=== PATIENT | male | born 1960 | race Caucasian/White ===

== ENCOUNTER 2025-10-18 15:32 | Outpatient (CLI) | payer MEDICARE, SELFPAY ==
[2025-10-18 16:03] LABS: Hematocrit 47.9 % (37-53); Hemoglobin 16.30 g/dL (11.27-16.99); Mean Corpuscular HGB Conc 34.0 g/dL (30-55); Mean Corpuscular Hemoglobin 30.6 pg (27-33); Mean Corpuscular Volume 89.9 fl (82-101); Nucleated Red Blood Cells % 0 %; Platelet Count 231 10^3/cmm (157-399); Red Blood Count 5.33 10^6/uL (3.85-5.65); White Blood Count 7.77 10^3/uL (3.29-11.43)
== END 2025-10-18 15:33 | disposition home or self-care (01) ==
LOC: LAB 15:35
PROVIDERS: PCP Nurse Practitioner Family; Visit Provider Nurse Practitioner Family
DX: D58.2 Other hemoglobinopathies (principal)
CPT/HCPCS: 36415; 85025

== ENCOUNTER 2025-10-27 14:17 | Outpatient (CLI) | payer MEDICARE, SELFPAY ==
--- NOTE | 2025-10-27 14:33 | USCV_ITS ---
Gonzalez Lea Age: 65 Gender: M : 1960 Exam Date: 10/27/2025 15:02 Ordering Phys: Seda Gonsalez APN Technologist: Adrian Toledo Exam Location: [facility] – [place] Indication: hypertension/ intermittent chest pain BP: 152 / 88 HR: 72 Rhythm: Sinus Technical Quality: Adequate MEASUREMENTS (Male / Female) Normal Values 2D ECHO LV Diastolic Diameter PLAX 5.2 cm 4.2 - 5.9 / 3.9 - 5.3 cm IVS Diastolic Thickness 1.1 cm 0.6 - 1.0 / 0.6 - 0.9 cm IVS Systolic Thickness 1.4 cm LVPW Diastolic Thickness 1.0 cm 0.6 - 1.0 / 0.6 - 0.9 cm LVPW Systolic Thickness 1.9 cm LVOT Diameter 2.1 cm LV Ejection Fraction 2D Teich 63.4 % LV Ejection Fraction MOD 4C 55.4 % LV Ejection Fraction MOD 2C 54.8 % LV Ejection Fraction 2C AL 54.8 % LA Diameter 4.5 cm RA Systolic Volume 4C AL 46.1 ml RA Systolic Volume 4C MOD 43.5 ml LA Sys Volume AL 53.5 cm cubed LA Sys Volume Index AL 22.4 cm cubed/m squared Aorta at Sinotubular Diameter 2.9 cm IVC Diameter 1.4 cm M-MODE LA Ao Ratio MM 1.0 AV Cusp Separation MM 2.1 cm DOPPLER AV Peak Velocity 130.0 cm/s LVOT Peak Velocity 72.0 cm/s AV Area Cont Eq vti 2.1 cm squared AV Area Cont Eq pk 2.0 cm squared MV Peak Velocity 63.0 cm/s MV Area PHT 4.3 cm squared Mitral E to A Ratio 0.8 TR Peak Velocity 291.0 cm/s TR Peak Gradient 33.9 mmHg TR Mean Velocity 231.0 cm/s TR Mean Gradient 22.6 mmHg TR Velocity Time Integral 60.2 cm PV Peak Velocity 104.7 cm/s RV Ejection Time 0.3 s FINDINGS Left Ventricle Normal left ventricular size, systolic function and wall thickness with no regional wall motion abnormality. Left ventricular ejection fraction is 55%. Normal left ventricular diastolic function. Right Ventricle Normal right ventricular size and systolic function. Right Atrium Normal right atrial size. Left Atrium Normal left atrial size. IA Septum Normal appearance of the interatrial septum. Mitral Valve Normal mitral valve structure. No mitral valve stenosis or regurgitation. Aortic Valve Normal aortic valve structure. No aortic valve stenosis. Trace aortic valve regurgitation Tricuspid Valve Normal tricuspid valve structure. Trace tricuspid valve regurgitation. Normal pulmonary pressure. Pulmonic Valve Normal pulmonic valve structure. No pulmonic valve stenosis or regurgitation. Pericardium No pericardial effusion. Aorta Normal diameter of the aortic root and ascending thoracic aorta. IVC Normal IVC diameter. CONCLUSIONS Normal left ventricular size, systolic function and wall thickness with ejection fraction of 55%. Normal right ventricular size and systolic function. Trace aortic valve regurgitation Sebas Matthew MD, FACC (Electronically Signed) Final Date: 27 October 2025 17:33 S
== END 2025-10-27 14:18 | disposition home or self-care (01) ==
PROVIDERS: PCP Nurse Practitioner Family; Visit Provider Nurse Practitioner Family
DX: R07.9 Chest pain, unspecified (principal); I10 Essential (primary) hypertension; I36.1 Nonrheumatic tricuspid (valve) insufficiency
CPT/HCPCS: 93306